=== PATIENT | male | born 1945 | race Caucasian/White ===

== ENCOUNTER 2018-01-14 10:15 | Emergency (ER) | payer MEDICARE ==
[~2018-01-14] VITALS: Ht 175.3 cm; Wt 133.4 kg
[2018-01-14 10:22] VITALS: BP 174/91
[2018-01-14] MEDS ORDERED: NEOMYCIN-BACITRACIN-POLYM UNITDOSE PKG TOP OINT TOP ONE (11:15)
== END 2018-01-14 11:24 | disposition home or self-care (01) ==
LOC: ER 10:15
DX: T23.272A Burn of second degree of left wrist, initial encounter (principal); X08.8XXA Exposure to other specified smoke, fire and flames, initial encounter; Y93.89 Activity, other specified; Y99.8 Other external cause status; Y92.89 Other specified places as the place of occurrence of the external cause

== ENCOUNTER 2024-03-29 12:07 | Inpatient (IN) | payer MEDICARE ==
[~2024-03-29] VITALS: Ht 165.1 cm; Wt 118.9 kg
[~2024-03-29 12:07] MED LIST: APIX2.5T PO; FINA5TAB4 PO
--- NOTE | 2024-03-29 12:28 | ED.PDOC ---
Musculoskeletal HPI Comments 78 year old male presents to the ED with chief complaint of blister to leg. Patient reports that he has been experiencing a large blister noted to his left leg for the past 3 days. Patient relays that he also has been experiencing bilateral leg and hand swelling for the past 2 months, but his PCP had told him it could just be due to arthritis. Patient states he is worried for fluid overload and is unsure if that could be causing the blister and swelling. Patient denies any numbness, weakness, chest pain, SOB, dizziness, fall, or injury. Time Seen by MD: 12:24 Primary Care Provider: MATY Reviewed Notes: Nurses Notes, Medications, Allergies Allergies: Coded Allergies: NO KNOWN ALLERGIES (Unverified , 01/25/19) Home Meds Reported Medications Finasteride (Finasteride) 5 Mg Tab, 5 MG PO DAILY for 30 Days, MG 01/25/19 Apixaban Base (ELIQUIS) 2.5 Mg Tab, 2.5 MG PO BID, TAB 01/25/19 Information Source: Patient, Spouse Mode of Arrival: Ambulatory Location: Left Extremity Location: Leg Timing: Days Prehospital treatment: None Severity: Moderate Able to Move Extremity: Yes Bear Weight: Limited Pain: Moderate Mechanism: Spontaneous Circumstances: Spontaneous Onset of Symptoms: Spontaneous Symptoms: Swelling DVT Risk Factors: NONE Last Tetanus: Unknown Past Medical History PAST MEDICAL HISTORY: AFIB, HTN Surgical History: Denies all surgeries Family History Family History: Unknown Social History Smoker: Non-Smoker Alcohol: Denies ETOH Use Drugs: Denies Drug Use Lives In: Home Constitutional: denies: chills, diaphoresis, fatigue, fever, malaise, sweats, weakness, others EENTM: denies: blurred vision, double vision, ear bleeding, ear discharge, ear drainage, ear pain, ear ringing, eye pain, eye redness, hearing loss, mouth pain, mouth swelling, nasal discharge, nose bleeding, nose congestion, nose pain, photophobia, tearing, throat pain, throat swelling, voice changes, others Respiratory: denies: cough, hemoptysis, orthopnea, SOB at rest, shortness of breath, SOB with excertion, stridor, wheezing, others Cardiovascular: reports: edema; denies: chest pain, dizzy spells, diaphoresis, Dyspnea on exertion, irregular heart beat, left arm pain, lightheadedness, palpitations, PND, syncope, others Gastrointestinal: denies: abdomen distended, abdominal pain, blood streaked bowels, constipated, diarrhea, dysphagia, difficulty swallowing, hematemesis, melena, nausea, poor appetite, poor fluid intake, rectal bleeding, rectal pain, vomiting, others Genitourinary: denies: burning, dysuria, flank pain, frequency, hematuria, incontinence, penile discharge, penile sore, pain, testicle pain, testicle swelling, urgency, others Neurological: denies: dizziness, fainting, headache, left sided numbness, left sided weakness, numbness, paresthesia, pre-existing deficit, right sided numbness, right sided weakness, seizure, speech problems, tingling, tremors, weakness, others Musculoskeletal: denies: back pain, gout, joint pain, joint swelling, muscle pain, muscle stiffness, neck pain, others Integumetry: reports: others (Blister noted to left leg); denies: bruises, change in color, change in hair/nails, dryness, laceration, lesions, lumps, rash, wounds Allergic/Immunocompromised: denies: Difficulty Healing, Frequent Infections, Hives, Itching, others Hematologic/Lymphatic: denies: anemia, blood clots, easy bleeding, easy bruising, swollen glands, others Endocrine: denies: excessive hunger, excessive sweating, excessive thirst, excessive urination, flushing, intolerance to cold, intolerance to heat, unexplained weight gain, unexplained weight loss, others Psychiatric: denies: anxiety, bipolar disorder, depression, hopeless, panic disorder, schizophrenia, sleepless, suicidal, others All Other Systems: Reviewed and Negative Physical Exam General Appearance: No Apparent Distress, Normal HEENT: Normal ENT Inspection, PERRL/EOMI Neck: Full Range of Motion, Non-Tender, Normal, Normal Inspection Respiratory: Chest Non-Tender, Lungs Clear, No Accessory Muscle Use, No Respiratory Distress, Normal Breath Sounds Cardiovascular: No Edema, No JVD, No Murmur, No Gallop, Normal Peripheral Pulses, Regular Rate/Rhythm Breast Exam: Deferred Gastrointestinal: No Organomegaly, Non Tender, No Pulsatile Mass, Normal Bowel Sounds, Soft Genitalia: Deferred Pelvic: Deferred Rectal: Deferred Extremities: Leg edema (2+ pitting edema to bilateral lower extremities up to the knees), No calf tenderness, Normal capillary refill, Normal range of motion, Other (2x2cm Bulla noted to the left anterior leg) Musculoskeletal : Apperance: Normal Neurologic: Alert, oil inspector II-XII nml as Tested, No Motor Deficits, Normal Affect, Normal Mood, No Sensory Deficits Cerebellar Function: Normal Reflexes: Normal Skin: Dry, Normal Color, Warm Lymphatic: No Adenopathy Was a procedure done? Was a procedure done?: No Differential Diagnosis EXT Differential Diagnosis: Cellulitis, CHF, Deep Vein Thrombosis, Compartment Syndrome, Fracture, Sprain, Dislocation, Gout, DJD, Contusion, Strain, Septic, Neurovascular injury, Arthritis, Bursitis X-Ray, Labs, Meds, VS Vital Signs Date Time Temp Pulse Resp B/P (MAP) Pulse Ox O2 Delivery O2 Flow Rate FiO2 03/29/24 15:02 97.3 67 18 142/84 (103) 100 97.3 03/29/24 15:02 Room Air* 0 21 03/29/24 12:31 84 03/29/24 12:20 97.8 87 20 115/49 (71) 97 Lab Test 03/29/24 14:28 03/29/24 12:59 Range/Units Troponin I High Sensitivity 9 9 </=54 ng/L White Blood Count 8.6 4.4-10.8 10^3/uL Red Blood Count 4.87 4.5-5.90 10^6/uL Hemoglobin 16.2 13.5-17.5 g/dL Hematocrit 48.0 41.0-53.0 % Mean Corpuscular Volume 98.7 80.0-100.0 fL Mean Corpuscular Hemoglobin 33.2 H 28.0-32.0 pg Mean Corpuscular Hemoglobin Concent 33.7 32.0-36.0 g/dL Red Cell Distribution Width 13.7 11.8-14.3 % Platelet Count 157 140-450 10^3/uL Mean Platelet Volume 9.0 6.9-10.8 fL Neutrophils (%) (Auto) 80.2 H 37.0-80.0 % Lymphocytes (%) (Auto) 9.2 L 10.0-50.0 % Monocytes (%) (Auto) 8.8 0.0-12.0 % Eosinophils (%) (Auto) 0.9 0.0-7.0 % Basophils (%) (Auto) 0.9 0.0-2.0 % Neutrophils # (Auto) 6.9 1.6-8.6 10 ^3/uL Lymphocytes # (Auto) 0.8 0.4-5.4 10 ^3/uL Monocytes # (Auto) 0.8 0-1.3 10 ^3/uL Eosinophils # (Auto) 0.1 0-0.8 10 ^3/uL Basophils # (Auto) 0.1 0-0.2 10 ^3/uL Nucleated Red Blood Cells 0.0 % Prothrombin Time 11.9 H 9.3-11.8 sec Prothrombin Time INR 1.14 0.9-1.15 Activated Partial Thromboplast Time 26.2 24.5-34.5 SEC D-Dimer, Quantitative 0.79 H 0.0-0.49 mg/L FEU Sodium Level 139 136-145 mmol/L Potassium Level 4.6 3.5-5.1 mmol/L Chloride Level 104 98-107 mmol/L Carbon Dioxide Level 30 20-31 mmol/L Anion Gap 5 5-15 Blood Urea Nitrogen 15 9-23 mg/dL Creatinine 0.88 0.700-1.30 mg/dL Glomerular Filtration Rate Calc 89 >90 mL/min BUN/Creatinine Ratio 17.0 10.0-20.0 Serum Glucose 129 H 74-106 mg/dL Calcium Level 9.7 8.7-10.4 mg/dL Magnesium Level 2.0 1.6-2.6 mg/dL Total Bilirubin 0.8 0.2-1.0 mg/dL Aspartate Amino Transferase (AST) 23 13-40 U/L Alanine Aminotransferase (ALT) 20 7-40 U/L Alkaline Phosphatase 91 46-116 U/L B-Type Natriuretic Peptide 129.30 0-100 pg/mL Total Protein 6.1 5.7-8.2 g/dL Albumin 4.1 3.2-4.8 g/dL Bilat DVT US: FINDINGS: The right and left common femoral, superficial femoral, popliteal, posterior tibial veins appear patent with normal augmentation, phasicity, compressibility and color-flow. IMPRESSION: 1. There is no sonographic evidence for DVT in the lower extremities. Rt Upper DVT US: FINDINGS: Right internal jugular, subclavian, axillary, brachial, basilic, cephalic, radial and ulnar veins appear patent with normal augmentation, phasicity, compressibility and color-flow. IMPRESSION: 1. No sonographic evidence of DVT in the right upper extremity. Chest XR: FINDINGS: No pneumothorax, pulmonary edema, or consolidative infiltrates. The heart is enlarged. There is marked midthoracic dextroscoliosis. IMPRESSION: 1. Cardiomegaly without evidence of acute intrathoracic process. 2. Marked midthoracic dextroscoliosis. X-Ray, Labs, Meds, VS Comment This 78 year old male presents secondary to increasing BLLE edema, SOB and now has a bullae to [facility]. He is having difficulty ambulating secondary to the edema. I will admit for acute CHF exacerbation Time of 1ST Reevaluation: 13:24 Reevaluation 1ST: Unchanged Patient Education/Counseling: Diagnosis, Treatment Family Education/Counseling: Diagnosis, Treatment Departure 1 Departure Time of Disposition: 15:33 Impression: Primary Impression: CHF (congestive heart failure) Additional Impressions: Lower extremity edema Difficulty in walking Bullae Disposition: 09 ADMITTED INPATIENT Condition: Fair Critical Care Note Critical Care Time?: No Stability Stability form required: No Heart Score Heart Score: Heart Score Response (Comments) Value History N/A 0 EKG N/A 0 Age N/A 0 Risk Factors N/A 0 Troponin N/A 0 Total 0 I personally scribed for ANNE FREEMAN MD ([email or web address]) on 03/29/24 at 12:27. Electronically submitted by Jamal Valenzuela ([email or web address]). I personally scribed for ANNE FREEMAN MD ([email or web address]) on 03/29/24 at 14:47. Electronically submitted by Jamal Valenzuela ([email or web address]). ANNE FREEMAN MD Mar 29, 2024 12:27
--- NOTE | 2024-03-29 12:33 | ECG ---
[facility] Test Date: 2024-03-29 Test Time: 12:31:50 Pat Name: JARAD BUSCH Department: ER Room: 0294T Gender: M Hydrotherapist: SNOW : 1945 Requested By: ANNE FREEMAN Order Number: [id number] Reading MD: Andrew Armendariz Measurements Intervals Telferner Rate: 84 P: 0 DE: 0 QRS: -9 QRSD: 84 T: 93 QT: 377 QTc: 446 Interpretive Statements Atrial fibrillation Low voltage, precordial leads Nonspecific T abnormalities, lateral leads Electronically Signed On 03-30-2024 13:16:47 PST by Andrew Armendariz Please click the below link to view image of tracing.
--- NOTE | 2024-03-29 13:02 | DVH ---
CHEST RADIOGRAPH Indication: cough Technique: Portable upright AP view of the chest was performed. COMPARISON: None FINDINGS: No pneumothorax, pulmonary edema, or consolidative infiltrates. The heart is enlarged. There is mar ked midthoracic dextroscoliosis. IMPRESSION: 1. Cardiomegaly without evidence of acute intrathoracic process. 2. Marked midthoracic dextroscoliosis.
[2024-03-29 13:30] LABS: Basophils # (auto) 0.1 10 ^3/uL (0-0.2); Basophils % (auto) 0.9 % (0.0-2.0); Eosinophils # (auto) 0.1 10 ^3/uL (0-0.8); Eosinophils % (auto) 0.9 % (0.0-7.0); Hemoglobin 16.2 g/dL (13.5-17.5); Lymphocytes # (auto) 0.8 10 ^3/uL (0.4-5.4); Lymphocytes % (auto) 9.2 % (10.0-50.0); Mean Corpuscular Hemoglobin 33.2 pg (28.0-32.0); Mean Corpuscular Hgb Conc. 33.7 g/dL (32.0-36.0); Mean Corpuscular Volume 98.7 fL (80.0-100.0); Monocytes # (auto) 0.8 10 ^3/uL (0-1.3); Monocytes % (auto) 8.8 % (0.0-12.0); Neutrophils # (auto) 6.9 10 ^3/uL (1.6-8.6); Neutrophils % (auto) 80.2 % (37.0-80.0); Platelet Count (auto) 157 10^3/uL (140-450); Red Blood Cells 4.87 10^6/uL (4.5-5.90); Red Cell Distribution Width 13.7 % (11.8-14.3); White Blood Cell 8.6 10^3/uL (4.4-10.8)
[2024-03-29 13:38] LABS: INR 1.14 (0.9-1.15); Partial Thromboplastin Time 26.2 SEC (24.5-34.5); Prothrombin Time 11.9 sec (9.3-11.8)
[2024-03-29 13:41] LABS: Alanine Aminotransferase 20 U/L (7-40); Alkaline Phosphatase 91 U/L (46-116); Anion Gap 5 (5-15); Aspartate Aminotransferase 23 U/L (13-40); Blood Urea Nitrogen 15 mg/dL (9-23); Calcium 9.7 mg/dL (8.7-10.4); Carbon Dioxide 30 mmol/L (20-31); Chloride 104 mmol/L (98-107); Potassium 4.6 mmol/L (3.5-5.1); Sodium 139 mmol/L (136-145)
[2024-03-29 13:42] LABS: Albumin 4.1 g/dL (3.2-4.8); Bilirubin, Total 0.8 mg/dL (0.2-1.0); Total Protein 6.1 g/dL (5.7-8.2)
[2024-03-29 13:45] LABS: Glucose 129 mg/dL (74-106)
--- NOTE | 2024-03-29 14:23 | DVH ---
Right UPPER EXTREMITY VENOUS DOPPLER CLINICAL HISTORY: right upper extremity edema TECHNIQUE: Right upper extremity venous Doppler study was performed. Comparison: None FINDINGS: Right internal jugular, subclavian, axillary, brachial, basilic, cephalic, radial and ulnar veins juancho ear patent with normal augmentation, phasicity, compressibility and color-flow. IMPRESSION: 1. No sonographic evidence of DVT in the right upper extremity. HS:Y
--- NOTE | 2024-03-29 14:29 | DVH ---
BILATERAL LOWER EXTREMITY VENOUS DOPPLER CLINICAL HISTORY: blle edema Technique: Duplex Doppler evaluation of the deep venous systems of both lower extremities from the co mmon femoral veins to the popliteal veins including color Doppler and spectral/pulsed waveform analys is was performed. COMPARISON: None FINDINGS: The right and left common femoral, superficial femoral, popliteal, posterior tibial veins appear pa tent with normal augmentation, phasicity, compressibility and color-flow. IMPRESSION: 1. There is no sonographic evidence for DVT in the lower extremities. HS:Y
[2024-03-29 15:46] LABS: Urine Bacteria None Seen /hpf (None Seen)
[2024-03-29 15:56] LABS: Urine Blood Negative /uL (Negative); Urine Clarity Clear (Clear); Urine Color Yellow (Yellow); Urine Mucus FEW (None Seen); Urine Protein, UAD TRACE (Negative); Urine Specific Gravity 1.025 (1.001-1.035); Urine Squamous Epithelial Cell FEW /hpf (<5); Urine Urobilinogen 2 mg/dL (Negative); Urine WBC 6 /HPF (0-3); Urine pH 5.5 (5.0-9.0)
[2024-03-29] MEDS ORDERED: ACETAMINOPHEN 325 MG TAB PO PRN (22:30)
[2024-03-30] VITALS (8 sets, daily range): BP systolic 105–128; BP diastolic 52–59; PULSE 69–91; RESP 14–20; TEMP 97.6–98.5; O2SAT 95–98
[2024-03-30] MEDS ORDERED: FUROSEMIDE 40 MG/4 ML VIAL IV ONE (00:15)
[2024-03-30] MEDS ORDERED: FINASTERIDE 5 MG TAB PO ONE (00:15)
[2024-03-30 00:31] LABS: CRP High Sensitivity 0.04 mg/dL (<1.0)
--- NOTE | 2024-03-30 01:50 | DVHHPRES ---
History of Present Illness Resident Creating Document: YAO DSOUZA RESIDENT History of Present Illness Patient is a 78-year-old male with past medical history of dementia, hypertension, AFib, obstructive uropathy, who was brought in by due to a left lower extremity ulcer. According to patient's at bedside, she noticed the ulcer yesterday for the 1st time. At the time of my assessment patient is AO x2 and reports he has had the ulcer for a couple of days. Denies any pain or any similar symptoms in the past. Review of systems is negative, however, patient might be a poor historian. On physical examination patient is noted to have a left anterior edwards ulcer stage II? 2 x 2 cm with a clean base along with 2+ lower extremity edema bilaterally. Past Medical History dementia, hypertension, AFib, obstructive uropathy Past Surgical History Denies Smoke: No ALCOHOL: none Drugs: None Lives: with Family Review of Systems Constitutional: No: Fever, Chills, Sweats, Weakness, Malaise, Other Eyes: No: Pain, Vision change, Conjunctivae inflammation, Eyelid inflammation, Other, Redness ENT: No: Ear pain, Ear discharge, Nose pain, Nose discharge, Nose congestion, Mouth pain, Mouth swelling, Throat pain, Throat swelling, Other Respiratory: No: Cough, Dry, Shortness of breath, SOB with excertion, Wheezing, Hemoptysis, Pleuritic Pain, Sputum, Wheezing, Other Cardiovascular: No: Chest Pain, Palpitations, Orthopnea, Paroxysmal Noc. Dyspnea, Edema, Lt Headedness, Other Gastrointestinal: No: Nausea, Vomiting, Abdominal Pain, Diarrhea, Constipation, Melena, Hematochezia, Other Genitourinary: No Dysuria, No Frequency, No Incontinence, No Hematuria, No Retention, No Other Musculoskeletal: No: other, neck pain, shoulder pain, arm pain, back pain, hand pain, leg pain, foot pain Skin: No: Rash, Lesions, Jaundice, Bruising, Other Neurological: No: Weakness, Numbness, Incoordination, Change in speech, Confusion, Seizures, Other Allergies: Coded Allergies: NO KNOWN ALLERGIES (Unverified , 01/25/19) Medications Current Medications Medications Dose Ordered Sig/Siri Route Start Time Stop Time Status Last Admin Dose Admin Acetaminophen 650 mg Q6HP PRN PO 03/29/24 22:30 Furosemide 40 mg DAILY IV 03/30/24 10:00 Enoxaparin Sodium 120 mg Q12H SC 03/30/24 01:00 Finasteride 5 mg DAILY PO 03/30/24 10:00 Memantine 5 mg DAILY PO 03/30/24 10:00 Lisinopril 20 mg DAILY PO 03/30/24 10:00 Exam Vital Signs Vital Signs Date Time Temp Pulse Resp B/P (MAP) Pulse Ox O2 Delivery O2 Flow Rate FiO2 03/29/24 23:35 97.5 74 16 150/76 (100) 98 97.5 03/29/24 15:02 Room Air* 0 21 General Appearance: Alert (AOX2), Cooperative, No acute distress HEENT: Atraumatic, PERRLA, EOMI Respiratory: Clear to auscultation, Normal air movement Cardiovascular: Regular rate, Normal S1, Normal S2 Abdominal: Normal bowel sounds, Soft, No tenderness Extremities: Other (Left anterior edwards ulcer with a clean base, 2+ lower ex tremity edema) Neuro: Normal speech, Sensation intact Psych/Mental Status: Mental status NL, Mood NL Labs/Xrays Labs Test 03/29/24 17:08 03/29/24 15:21 03/29/24 12:59 Range/Units Troponin I High Sensitivity 9 </=54 ng/L C-Reactive Protein High Sensitivity 0.04 <1.0 mg/dL Triglycerides Level 70 < 150 mg/dL Cholesterol Level 171 < 200 mg/dL LDL Cholesterol 118 H < 100 mg/dL HDL Cholesterol 58 40-59 mg/dL Urine Color Yellow Yellow Urine Clarity Clear Clear Urine pH 5.5 5.0-9.0 Urine Specific [place] 1.025 1.001-1.035 Urine Protein Trace H Negative Urine Ketones 1+ H Negative Urine Blood Negative Negative /uL Urine Nitrite Negative Negative Urine Bilirubin Negative Negative Urine Urobilinogen 2 H Negative mg/dL Urine Leukocyte Esterase Trace Negative /uL Urine RBC 7 0 - 3 /hpf Urine Microscopic WBC 6 H 0-3 /HPF Urine Squamous Epithelial Cells Few <5 /hpf Urine Calcium Oxalate Crystals Mod None Seen Urine Bacteria None seen None Seen /hpf Urine Mucus Few None Seen Urine Glucose Normal Normal mg/dL White Blood Count 8.6 4.4-10.8 10^3/uL Red Blood Count 4.87 4.5-5.90 10^6/uL Hemoglobin 16.2 13.5-17.5 g/dL Hematocrit 48.0 41.0-53.0 % Mean Corpuscular Volume 98.7 80.0-100.0 fL Mean Corpuscular Hemoglobin 33.2 H 28.0-32.0 pg Mean Corpuscular Hemoglobin Concent 33.7 32.0-36.0 g/dL Red Cell Distribution Width 13.7 11.8-14.3 % Platelet Count 157 140-450 10^3/uL Mean Platelet Volume 9.0 6.9-10.8 fL Neutrophils (%) (Auto) 80.2 H 37.0-80.0 % Lymphocytes (%) (Auto) 9.2 L 10.0-50.0 % Monocytes (%) (Auto) 8.8 0.0-12.0 % Eosinophils (%) (Auto) 0.9 0.0-7.0 % Basophils (%) (Auto) 0.9 0.0-2.0 % Neutrophils # (Auto) 6.9 1.6-8.6 10 ^3/uL Lymphocytes # (Auto) 0.8 0.4-5.4 10 ^3/uL Monocytes # (Auto) 0.8 0-1.3 10 ^3/uL Eosinophils # (Auto) 0.1 0-0.8 10 ^3/uL Basophils # (Auto) 0.1 0-0.2 10 ^3/uL Nucleated Red Blood Cells 0.0 % Prothrombin Time 11.9 H 9.3-11.8 sec Prothrombin Time INR 1.14 0.9-1.15 Activated Partial Thromboplast Time 26.2 24.5-34.5 SEC D-Dimer, Quantitative 0.79 H 0.0-0.49 mg/L FEU Sodium Level 139 136-145 mmol/L Potassium Level 4.6 3.5-5.1 mmol/L Chloride Level 104 98-107 mmol/L Carbon Dioxide Level 30 20-31 mmol/L Anion Gap 5 5-15 Blood Urea Nitrogen 15 9-23 mg/dL Creatinine 0.88 0.700-1.30 mg/dL Glomerular Filtration Rate Calc 89 >90 mL/min BUN/Creatinine Ratio 17.0 10.0-20.0 Serum Glucose 129 H 74-106 mg/dL Hemoglobin A1c 5.1 <5.7 % A1C Calcium Level 9.7 8.7-10.4 mg/dL Magnesium Level 2.0 1.6-2.6 mg/dL Total Bilirubin 0.8 0.2-1.0 mg/dL Aspartate Amino Transferase (AST) 23 13-40 U/L Alanine Aminotransferase (ALT) 20 7-40 U/L Alkaline Phosphatase 91 46-116 U/L B-Type Natriuretic Peptide 129.30 0-100 pg/mL Total Protein 6.1 5.7-8.2 g/dL Albumin 4.1 3.2-4.8 g/dL Assessment/Plan Assessment/Plan Possible CHF exacerbation History of atrial fibrillation with RVR, currently rate controlled Hypertension - CXR: Cardiomegaly without evidence of acute intrathoracic process. Marked midthoracic dextroscoliosis. - IV Lasix 40 mg once - IV Lasix 40 mg daily - therapeutic Lovenox b.i.d. - ordered echocardiogram Left anterior leg ulcer with a clean base Questionable cellulitis? - lower extremity venous Doppler: No sonographic evidence of DVT in bilateral lower extremities, no sonographic evidence of DVT in the right upper extremity - arterial duplex lower extremity: No evidence of arterial insufficiency, vascular occlusion or significant stenosis in the bilateral lower extremity arteries. Subcutaneous edema in the bilateral extremities, greater on the left. - wound culture -wound consult Obstructive uropathy Dementia - resumed home medication finasteride 5 mg - resumed home medication memantine 5 mg - resumed home medication lisinopril 20 mg Goals of care: Full code, discussed for >16 minutes on 03/29/2024 Plan discussed with patient Plan discussed with Dr. Carrillo Plan discussed with: Patient, Spouse, Other (RN) My Orders Orders - YAO DSOUZA RESIDENT Procedure Category Date Status Time Admit ADMIT 03/29/24 Transmitted 22:21 Code Status CODE 03/29/24 Transmitted 22:21 Vital Signs EDNA 03/29/24 In Process 22:21 Review Orders With EDNA 03/29/24 In Process Adm. 22:21 Acetaminophen Tablet PHA 03/29/24 In Process (Tylenol Tablet) 22:30 Notify Of Changes EDNA 03/29/24 In Process From Base 22:21 Advance Directive EDNA 03/29/24 In Process 22:21 Patient Condition ORDERS 03/29/24 Transmitted 22:21 Allergies EDNA 03/29/24 In Process 22:21 Notify Md Of Changes EDNA 03/29/24 In Process From Base 22:21 Echo 2d Mode Cardiac US 03/30/24 Logged DOP 00:12 Bilat Low Ext Art US 03/30/24 Taken Duplex 00:12 * Wound Consult CONS 03/30/24 Transmitted Wound Culture W/ Gs JOAO 03/30/24 Logged 00:12 Cardiac DIET 03/30/24 Transmitted Diet-2gna,Lofat,Lochol Breakfast Furosemide Injection PHA 03/30/24 In Process (Lasix Injection) 10:00 Enoxaparin Sodium PHA 03/30/24 In Process (Lovenox) 01:00 Finasteride Tablet PHA 03/30/24 In Process (Proscar Tablet) 10:00 Memantine Tablet PHA 03/30/24 In Process (Namenda Tablet) 10:00 Lisinopril Tablet PHA 03/30/24 In Process (Zestril Tablet) 10:00 Date of Service: Mar 29, 2024 Billing Provider: NAYELI ALATORRE MD Common Visit Codes: [id number]-[id number] INP/OBS CARE (HIGH) YAO DSOUZA RESIDENT Mar 30, 2024 01:50 NAYELI ALATORRE MD Apr 04, 2024 16:03
--- NOTE | 2024-03-30 01:56 | DVH ---
BILATERAL LOWER EXTREMITY ARTERIAL DOPPLER ULTRASOUND CLINICAL HISTORY: ulcer left anterior edwards TECHNIQUE: Multiple grayscale, color Doppler and spectral Doppler ultrasound images were obtained of bilateral legs for evaluation of the peripheral arteries. COMPARISON: None FINDINGS: The common femoral (DIRECTOR OPERATIONS), upper deep femoral, superficial femoral (SFA), popliteal, posterior tibial (TANKER DRIVER) arteries were evaluated on this exam. The dorsalis pedis arteries were not visualized in the l eft popliteal artery was not well-visualized. Grayscale images demonstrate no significant atherosclerotic plaque. There is subcutaneous edema in th e bilateral lower extremities greater on the left. Right: Color doppler images demonstrate no visible stenosis or occlusion. Spectral analysis demonstrates no rmal, high-resistive blood flow. Systolic acceleration is normal. No significant change in velocity to suggest high-grade stenosis. Velocities (in cm/s) Common femoral artery: 135; deep femoral artery proximally: 100; superficial femoral artery proximal 116, mid 86, distal 114; popliteal: 72 ; posterior tibial 79 Left: Color doppler images demonstrate no visible stenosis or occlusion. Spectral analysis demonstrates no rmal, high-resistive blood flow. Systolic acceleration is normal. No significant change in velocity to suggest high-grade stenosis. Velocities (in cm/s) Common femoral artery: 102; deep femoral artery proximal: 116; SFA proximal 116, mid 94, distal 55 ; posterior tibial: 62 IMPRESSION: 1. No evidence of arterial insufficiency, vascular occlusion or significant stenosis in the bilateral lower extremity arteries. 2. Subcutaneous edema in the bilateral extremities, greater on the left
[2024-03-30] MEDS ORDERED: FIN5T PO (05:27)
[2024-03-30] MEDS ORDERED: DONE1TAB88 PO (05:27)
[2024-03-30] MEDS ORDERED: MEMA1TAB3 PO (05:27)
[2024-03-30] MEDS ORDERED: LISI20TA56 (05:27)
[2024-03-30] MEDS ORDERED: APIX5TAB PO (05:28)
[2024-03-30 09:29] LABS: Basophils # (auto) 0.1 10 ^3/uL (0-0.2); Basophils % (auto) 0.7 % (0.0-2.0); Eosinophils # (auto) 0.1 10 ^3/uL (0-0.8); Eosinophils % (auto) 0.7 % (0.0-7.0); Hematocrit 43.9 % (41.0-53.0); Lymphocytes # (auto) 0.7 10 ^3/uL (0.4-5.4); Mean Corpuscular Hemoglobin 33.3 pg (28.0-32.0); Mean Corpuscular Hgb Conc. 34.2 g/dL (32.0-36.0); Mean Corpuscular Volume 97.2 fL (80.0-100.0); Monocytes # (auto) 0.7 10 ^3/uL (0-1.3); Monocytes % (auto) 9.3 % (0.0-12.0); Neutrophils # (auto) 6.2 10 ^3/uL (1.6-8.6); Neutrophils % (auto) 80.3 % (37.0-80.0); Platelet Count (auto) 139 10^3/uL (140-450); Red Blood Cells 4.52 10^6/uL (4.5-5.90); Red Cell Distribution Width 13.5 % (11.8-14.3); White Blood Cell 7.7 10^3/uL (4.4-10.8)
[2024-03-30 09:34] LABS: Chloride 105 mmol/L (98-107); Potassium 4.2 mmol/L (3.5-5.1); Sodium 139 mmol/L (136-145)
[2024-03-30 09:35] LABS: Anion Gap 5 (5-15); Calcium 9.6 mg/dL (8.7-10.4); Carbon Dioxide 29 mmol/L (20-31)
[2024-03-30 09:40] LABS: BUN/Creatinine Ratio 17.8 (10.0-20.0); Blood Urea Nitrogen 13 mg/dL (9-23); Glucose 104 mg/dL (74-106)
[2024-03-30] MEDS: LISINOPRIL 20 MG TAB PO SCH (10:23)
[2024-03-30] MEDS: FINASTERIDE 5 MG TAB PO SCH (10:23)
[2024-03-30] MEDS: MEMANTINE HCL 5 MG TAB PO SCH (10:23)
[2024-03-30] MEDS: FUROSEMIDE 40 MG/4 ML VIAL IV SCH (10:24)
--- NOTE | 2024-03-30 13:17 | DVHPNRES ---
Progress Note Date Seen: Mar 30, 2024 Resident Creating Document: KATHIE ALTAMIRANOYVONNE RESIDENT Medical Necessity Reason Pt with a Central, PICC or Fol: No Subjective Review of Systems Patient is a 78-year-old male with a past medical history of atrial fibrillation, hypertension, dementia, obstructive uropathy was brought in by due to left lower extremity ulcer. Patient's reported that she noticed ulcer on the left lower extremity on the anterior surface of the lower leg above ankle about 2 days ago. She also reports that patient was had bilateral lower extremity swelling which has been increasing. Patient himself is a poor historian and does not report of any acute complaints. Past medical history: Dementia, atrial fibrillation, hypotension, obstructive uropathy Past surgical history: None Social history: Patient lives with his who is his wireless sales associate, uses walker to walk around. Denies smoking, alcohol, drug use Home medications: Lisinopril 20 mg, finasteride 5 mg, memantine 5 mg, donepezil 10 mg, Eliquis 5 mg b.i.d. Review of systems Patient does not complain of any acute complaints and reports feeling fine but patient has dementia. does not appear to be in acute distress Objective vital signs Vital Sign Date Time Temp Pulse Resp B/P (MAP) Pulse Ox O2 Delivery O2 Flow Rate FiO2 03/30/24 10:24 119/53 03/30/24 09:00 98.1 79 16 96 98.1 03/30/24 08:00 Room Air* 0 21 medications Current Medications Medications Dose Ordered Sig/Siri Route Start Time Stop Time Status Last Admin Dose Admin Acetaminophen 650 mg Q6HP PRN PO 03/29/24 22:30 Furosemide 40 mg DAILY IV 03/30/24 10:00 03/30/24 10:24 40 MG Enoxaparin Sodium 120 mg Q12H SC 03/30/24 01:00 Finasteride 5 mg DAILY PO 03/30/24 10:00 03/30/24 10:23 5 MG Memantine 5 mg DAILY PO 03/30/24 10:00 03/30/24 10:23 5 MG Lisinopril 20 mg DAILY PO 03/30/24 10:00 03/30/24 10:23 20 MG Examination Physical Examination Constitutional: Patient was alert and oriented X 1 and does not appear to be in acute respiratory distress. Gen - no pallor, no icterus, no cyanosis, no clubbing, no LAD, bilateral 3+ pitting edema Skin - Patients skin is warm and dry. HEENT - normocephalic, atraumatic, moist mucous membranes. Neck - full ROM, no LAD, no JVD Pulmonary - B/L vesicular breath sounds. no crackles , no wheezing cardiovascular - irregular rhythm, S1,S2 heard. no murmurs heard. GI - soft abdomen without tenderness to palpation . no hepatospleenomegaly. Bowel Sounds normoactive Neurological - Bilateral upper extremity strength 4/5, bilateral lower extremity strength 4/5, no facial droop, normal speech, no tremor, no sensory deficiets. 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 There is global hypokinesis of the left ventricle. The left atrium is moderately dilated. The right atrium is moderately dilated. - on furosemide 40mg IV qd - on lisinopril 20mg qd History of obstructive uropathy ?BPH - monitor I/O - on finasteride Dementia - continued on memantine Goals of care discussed with the patient's for over 20 mins. Full code Plan discussed with Plan discussed with: Spouse CURTIS ALTAMIRANO RESIDENT Mar 30, 2024 13:17
[2024-03-30] MEDS: ceFAZolin 1GM/50ML 50 ML IV SCH (14:00)
--- NOTE | 2024-03-30 15:16 | DVHSR ---
APPROVED REPORT EXAM: Two-dimensional and M-mode echocardiogram with Doppler and color Doppler. Blood Pressure: 127/59 mmHg INDICATION 2+ lower extremity edema RISK FACTORS Height: 65, Weight: 257 DIMENSIONS LVDd4.4 (3.8-5.7cm)LA (2D)5.1 (1.9-4.0cm)Aortic Root3.5 (2.0-3.7cm) LVDs3.3 (2.5-4.0cm)LA (MM) (1.9-4.0cm)Aortic Cusp Exc1.0 (1.5-2.0cm) EF (%) 50.0 (55-70%)Rt. Atrium4.9 (1.9-4.0cm)Asc. Aorta cm Mitral Valve MitralMitral Stenosis E/A ratio0.02D MVAcm2 Aortic Valve Aortic ValveAortic Stenosis LVOT Diameter2.4 (1.8-2.4cm)Doppler AVAcm2 Pulmonic Valve V21.17m/s Tricuspid Valve TR Velocity2.48m/s [id number] LEFT VENTRICLE The left ventricle is normal size. There is normal left ventricular wall thickness. Left ventricle systolic function is mildly decreased, The Ejection Fraction is 40-45%. There is global hypokinesis of the left ventricle. RIGHT VENTRICLE Right ventricular function cannot be assessed due to poor image quality. ATRIA The left atrium is moderately dilated. The right atrium is moderately dilated. MITRAL VALVE The mitral valve is grossly normal. Mitral regurgitation is trace. PULMONIC VALVE The pulmonic valve is grossly normal in structure and function. There is no pulmonic valvular regurgitation. TRICUSPID VALVE The tricuspid valve is grossly normal. There is trace tricuspid regurgitation. AORTIC VALVE The aortic valve is trileaflet. The aortic valve is mildly sclerotic. There is trace aortic regurgitation. GREAT VESSELS The aortic root is normal size. PERICARDIAL EFFUSION No evidence of pericardial effusion. Other Information Technically limited study due to body habitus and patient position. Patient refused to let me comple te the study in full. Conclusion The left ventricle is normal size. There is normal left ventricular wall thickness. Left ventricle sy stolic function is mildly decreased, The Ejection Fraction is 40-45%. There is global hypokinesis of the left ventricle. The left atrium is moderately dilated. The right atrium is moderately dilated. No significant valvular abnormalities. No evidence of pericardial effusion.
[2024-03-31] VITALS (7 sets, daily range): BP systolic 110–133; BP diastolic 55–71; PULSE 68–96; RESP 17–20; TEMP 97.7–98; O2SAT 96–97
[2024-03-31 07:43] LABS: Basophils # (auto) 0 10 ^3/uL (0-0.2); Basophils % (auto) 0.5 % (0.0-2.0); Eosinophils # (auto) 0.1 10 ^3/uL (0-0.8); Eosinophils % (auto) 1.8 % (0.0-7.0); Hematocrit 45.7 % (41.0-53.0); Hemoglobin 15.8 g/dL (13.5-17.5); Lymphocytes # (auto) 0.9 10 ^3/uL (0.4-5.4); Lymphocytes % (auto) 11.6 % (10.0-50.0); Mean Corpuscular Hemoglobin 33.6 pg (28.0-32.0); Mean Corpuscular Hgb Conc. 34.5 g/dL (32.0-36.0); Mean Corpuscular Volume 97.4 fL (80.0-100.0); Monocytes # (auto) 0.7 10 ^3/uL (0-1.3); Neutrophils # (auto) 5.9 10 ^3/uL (1.6-8.6); Neutrophils % (auto) 77.1 % (37.0-80.0); Nucleated Red Blood Cells % 0.2 %; Platelet Count (auto) 131 10^3/uL (140-450); Red Blood Cells 4.69 10^6/uL (4.5-5.90); Red Cell Distribution Width 13.4 % (11.8-14.3); White Blood Cell 7.7 10^3/uL (4.4-10.8)
[2024-03-31 08:00] LABS: Anion Gap 5 (5-15); Chloride 102 mmol/L (98-107); Sodium 139 mmol/L (136-145)
[2024-03-31 08:01] LABS: Calcium 9.5 mg/dL (8.7-10.4)
[2024-03-31 08:06] LABS: BUN/Creatinine Ratio 14.1 (10.0-20.0); Blood Urea Nitrogen 13 mg/dL (9-23); Glucose 105 mg/dL (74-106)
[2024-03-31 08:18] LABS: Carbon Dioxide 32 mmol/L (20-31)
[2024-03-31] MEDS: ENOXAPARIN SOD 100 MG/1 ML SYRINGE SC SCH (12:49)
[2024-03-31] MEDS: EMPAGLIFLOZIN 10 MG TAB PO SCH (12:50)
[2024-03-31] MEDS ORDERED: ENOXAPARIN SOD 120 MG/0.8 ML SYRINGE SC SCH (16:45)
--- NOTE | 2024-03-31 17:12 | DVHPNRES ---
Progress Note Date Seen: Mar 31, 2024 Resident Creating Document: TIEN ALTAMIRANONUZHATREG RESIDENT Medical Necessity Reason Pt with a Central, PICC or Fol: No Subjective Review of Systems Patient does not complain of any acute complaints and reports feeling fine but patient has dementia. does not appear to be in acute respiratory distress Objective vital signs Vital Sign Date Time Temp Pulse Resp B/P (MAP) Pulse Ox O2 Delivery O2 Flow Rate FiO2 03/31/24 10:44 98.0 68 18 120/59 (79) 96 98.0 03/31/24 08:00 Room Air* 0 21 Total Intake and Output 03/30/24 03/30/24 03/31/24 15:00 23:00 07:00 Intake Total 50 ml 175 ml 345 ml Output Total 2530 ml 450 ml Balance 50 ml -2355 ml -105 ml medications Current Medications Medications Dose Ordered Sig/Siri Route Start Time Stop Time Status Last Admin Dose Admin Acetaminophen 650 mg Q6HP PRN PO 03/29/24 22:30 Furosemide 40 mg DAILY IV 03/30/24 10:00 03/31/24 10:05 40 MG Finasteride 5 mg DAILY PO 03/30/24 10:00 03/31/24 10:04 5 MG Memantine 5 mg DAILY PO 03/30/24 10:00 03/31/24 10:04 5 MG Empaglifozin 10 mg DAILY PO 03/31/24 10:45 03/31/24 12:50 10 MG Ceftriaxone Sodium 50 ml @ 100 mls/hr DAILY@09 IV 04/01/24 09:00 Losartan Potassium 50 mg DAILY PO 04/01/24 10:00 Enoxaparin Sodium 120 mg Q12H SC 03/31/24 20:00 Examination Constitutional: Patient was alert and oriented X 1 and does not appear to be in acute respiratory distress. Gen - no pallor, no icterus, no cyanosis, no clubbing, no LAD, bilateral 2+ pitting edema Skin - Patients skin is warm and dry. HEENT - normocephalic, atraumatic, moist mucous membranes. Neck - full ROM, no LAD, no JVD Pulmonary - B/L vesicular breath sounds. no crackles , no wheezing cardiovascular - irregular rhythm, S1,S2 heard. no murmurs heard. GI - soft abdomen without tenderness to palpation . no hepatospleenomegaly. Bowel Sounds normoactive Neurological - Bilateral upper extremity strength 4/5, bilateral lower extremity strength 4/5, no facial droop, normal speech, no tremor, no sensory deficiets. 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 There is global hypokinesis of the left ventricle. The left atrium is moderately dilated. The right atrium is moderately dilated. - on furosemide 40mg IV qd - stopped lisinopril and started losartan 50 mg qd - added jardiance - cardiology consult for possible ischemic workup d/t new onset heart failure History of obstructive uropathy ?BPH - monitor I/O - on finasteride Dementia - continued on memantine Goals of care discussed with the patient's for over 21 mins. Full code Plan discussed with Plan discussed with: Spouse (anel) My Orders My Orders Orders - CURTIS ALTAMIRANO Procedure Category Date Status Time Empagliflozin PHA 03/31/24 In Process (Jardiance) 10:45 Pt Request For Service PT 03/31/24 Logged 10:53 * Cardiology Consult CONS 03/31/24 Transmitted 15:31 Ceftriaxone 1gm/50ml PHA 04/01/24 In Process D5w (Rocephin) 09:00 Losartan Tablet PHA 04/01/24 In Process (Cozaar Tablet) 10:00 Date of Service: Mar 31, 2024 Billing Provider: JOVITA FISH MD Common Visit Codes: [id number] INP/OBS CARE(HIGH) CURTIS ALTAMIRANO RESIDENT Mar 31, 2024 17:12 JOVITA FISH MD Apr 03, 2024 11:29
[2024-03-31] MEDS: ENOXAPARIN SOD 120 MG/0.8 ML SYRINGE SC SCH (20:55)
[2024-04-01 07:48] LABS: Basophils # (auto) 0.1 10 ^3/uL (0-0.2); Basophils % (auto) 0.8 % (0.0-2.0); Eosinophils # (auto) 0.2 10 ^3/uL (0-0.8); Eosinophils % (auto) 2.7 % (0.0-7.0); Hematocrit 45.6 % (41.0-53.0); Hemoglobin 15.6 g/dL (13.5-17.5); Lymphocytes # (auto) 0.9 10 ^3/uL (0.4-5.4); Lymphocytes % (auto) 12.3 % (10.0-50.0); Mean Corpuscular Hemoglobin 33.7 pg (28.0-32.0); Mean Corpuscular Hgb Conc. 34.2 g/dL (32.0-36.0); Mean Corpuscular Volume 98.7 fL (80.0-100.0); Monocytes # (auto) 0.8 10 ^3/uL (0-1.3); Monocytes % (auto) 11.1 % (0.0-12.0); Neutrophils # (auto) 5.4 10 ^3/uL (1.6-8.6); Neutrophils % (auto) 73.1 % (37.0-80.0); Nucleated Red Blood Cells % 0.1 %; Platelet Count (auto) 131 10^3/uL (140-450); Red Blood Cells 4.62 10^6/uL (4.5-5.90); Red Cell Distribution Width 13.3 % (11.8-14.3); White Blood Cell 7.3 10^3/uL (4.4-10.8)
[2024-04-01 07:55] LABS: Anion Gap 10 (5-15); Carbon Dioxide 28 mmol/L (20-31); Chloride 101 mmol/L (98-107); Potassium 4.2 mmol/L (3.5-5.1); Sodium 139 mmol/L (136-145)
[2024-04-01 07:57] LABS: Calcium 9.5 mg/dL (8.7-10.4); INR 1.17 (0.9-1.15); Partial Thromboplastin Time 37.5 SEC (24.5-34.5); Prothrombin Time 12.2 sec (9.3-11.8)
[2024-04-01 08:00] VITALS: PULSE 69
[2024-04-01 08:01] LABS: Glucose 94 mg/dL (74-106)
[2024-04-01 08:02] LABS: BUN/Creatinine Ratio 22.6 (10.0-20.0); Blood Urea Nitrogen 19 mg/dL (9-23)
[2024-04-01 09:00] VITALS: BP 115/77; PULSE 86; RESP 18; TEMP 98; O2SAT 93
[2024-04-01] MEDS: LOSARTAN POTASSIUM 50 MG TAB PO SCH (11:30)
[2024-04-01] MEDS: cefTRIAXone 1GM/50ML D5W 50 ML IV SCH (11:41)
[2024-04-01 13:00] VITALS: BP 117/73; PULSE 81; RESP 18; TEMP 97.2; O2SAT 97
--- NOTE | 2024-04-01 13:45 | DVHINCON2 ---
Date Seen: Apr 01, 2024 Referring Physician MD Gayatri resident Reason for Consultation New onset CHF History of Present Illness This is a 78-year-old male patient who presents to the emergency room with chief complaint of left lower extremity ulcer and swelling. The patient was not the best historian given his history of dementia. The patient's at bedside able to provide more accurate history. According to the patient's , she brings the patient in for further evaluation of a left lower extremity ulcer that she noticed one day prior to emergency room arrival. Cardiology has now been consulted for "new onset congestive heart failure". Initial twelve lead e lectrocardiogram reveals atrial fibrillation with nonspecific ST segment changes to lateral leads. Initial and serial troponin levels have been negative. The patient denies any chest pain, shortness of breath, palpitations, or other cardiac symptoms. Significant past medical history includes congestive heart failure, hypertension, atrial fibrillation (on Eliquis), dementia, and obesity. The patient's reports that the patient has been known to have congestive heart failure and follows up with wood barker in the outpatient setting. Past Medical History Past medical history reviewed. No other significant than mentioned above. Past Surgical History Denies Family History: Patient reports no known family medical history. Family History Family history reviewed. Social History Denies the use of tobacco, alcohol or illicit drugs. Allergies: Coded Allergies: NO KNOWN ALLERGIES (Unverified , 01/25/19) Home Meds Reported Medications Apixaban Base (ELIQUIS) 5 Mg Tab, 5 MG PO BID, TAB 03/30/24 Memantine Hydrochloride (Memantine HCl) 5 Mg Tab, 1 TAB PO BID 03/30/24 Donepezil Hydrochloride (DONEPEZIL HCL) 10 Mg Tab, 1 TAB PO 03/30/24 Lisinopril (Lisinopril) 20 Mg Tab, 1 DAILY 03/30/24 Finasteride (Finasteride) 5 Mg Tab, 1 TAB PO DAILY 03/30/24 Finasteride (Finasteride) 5 Mg Tab, 5 MG PO DAILY for 30 Days, MG 01/25/19 Apixaban Base (ELIQUIS) 2.5 Mg Tab, 2.5 MG PO BID, TAB 01/25/19 Home Meds Home medications reviewed. Current Medications Current Medications Medications (Trade) Dose Ordered Sig/Siri Route PRN Reason Start Time Stop Time Status Last Admin Ceftriaxone Sodium 50 ml @ 100 mls/hr DAILY@09 IV 04/01/24 09:00 04/01/24 11:41 Losartan Potassium (Cozaar Tablet) 50 mg DAILY PO 04/01/24 10:00 04/01/24 11:30 Enoxaparin Sodium (Lovenox) 120 mg Q12H SC 03/31/24 16:45 03/31/24 16:36 DC Enoxaparin Sodium (Lovenox) 120 mg Q12H SC 03/31/24 20:00 04/01/24 11:30 Review of Systems Constitutional: No symptom reported Ears, Nose, & Throat: No symptom reported Eyes: No symptom reported Neurological: No symptoms reported Pulmonary/Respiratory: No symptoms reported Cardiovascular: Bilateral lower extremity edema Gastrointestinal: No symptom reported Genitourinary: No symptom reported Musculoskeletal: No symptom reported Skin: Left lower extremity ulcer Psychiatric: No symptom reported Endocrine: No symptom reported Hematologic/Lymphatic: No symptom reported Vital Signs Vital Signs Date Time Temp Pulse Resp B/P (MAP) Pulse Ox O2 Delivery O2 Flow Rate FiO2 04/01/24 11:30 113/75 04/01/24 08:15 Room Air* 0 21 03/31/24 20:00 17 96 03/31/24 20:00 81 03/31/24 17:00 97.7 97.7 Physical Exam General Appearance: Cooperative. Morbidly obese Pulmonary/Respiratory: Clear, bilateral breaths sounds. Cardiovascular/Chest: Irregular rate and rhythm. Peripheral Pulses: 2+ Radial (R). 2+ Radial (L). Abdominal Exam: Normal bowel sounds. Ankle Exam: 3+ pitting edema Lower extremities: Bilateral 3+ pitting edema Neuro/Mental Status: A/OX2-3, confused Thoughts/Psych: Normal thought pattern. Appearance: No acute distress. Skin Exam: Left lower extremity ulcer (dressing in place) Labs/Diagnostic Data Labs Test 04/01/24 06:53 03/31/24 10:45 03/29/24 17:08 03/29/24 15:21 Range/Units White Blood Count 7.3 4.4-10.8 10^3/uL Red Blood Count 4.62 4.5-5.90 10^6/uL Hemoglobin 15.6 13.5-17.5 g/dL Hematocrit 45.6 41.0-53.0 % Mean Corpuscular Volume 98.7 80.0-100.0 fL Mean Corpuscular Hemoglobin 33.7 H 28.0-32.0 pg Mean Corpuscular Hemoglobin Concent 34.2 32.0-36.0 g/dL Red Cell Distribution Width 13.3 11.8-14.3 % Platelet Count 131 L 140-450 10^3/uL Mean Platelet Volume 9.4 6.9-10.8 fL Neutrophils (%) (Auto) 73.1 37.0-80.0 % Lymphocytes (%) (Auto) 12.3 10.0-50.0 % Monocytes (%) (Auto) 11.1 0.0-12.0 % Eosinophils (%) (Auto) 2.7 0.0-7.0 % Basophils (%) (Auto) 0.8 0.0-2.0 % Neutrophils # (Auto) 5.4 1.6-8.6 10 ^3/uL Lymphocytes # (Auto) 0.9 0.4-5.4 10 ^3/uL Monocytes # (Auto) 0.8 0-1.3 10 ^3/uL Eosinophils # (Auto) 0.2 0-0.8 10 ^3/uL Basophils # (Auto) 0.1 0-0.2 10 ^3/uL Nucleated Red Blood Cells 0.1 % Prothrombin Time 12.2 H 9.3-11.8 sec Prothrombin Time INR 1.17 H 0.9-1.15 Activated Partial Thromboplast Time 37.5 H 24.5-34.5 SEC Sodium Level 139 136-145 mmol/L Potassium Level 4.2 3.5-5.1 mmol/L Chloride Level 101 98-107 mmol/L Carbon Dioxide Level 28 20-31 mmol/L Anion Gap 10 5-15 Blood Urea Nitrogen 19 9-23 mg/dL Creatinine 0.84 0.700-1.30 mg/dL Glomerular Filtration Rate Calc 90 >90 mL/min BUN/Creatinine Ratio 22.6 H 10.0-20.0 Serum Glucose 94 74-106 mg/dL Calcium Level 9.5 8.7-10.4 mg/dL Thyroid Stimulating Hormone (TSH) 1.83 0.55-4.78 uIU/mL Troponin I High Sensitivity 9 </=54 ng/L C-Reactive Protein High Sensitivity 0.04 <1.0 mg/dL Triglycerides Level 70 < 150 mg/dL Cholesterol Level 171 < 200 mg/dL LDL Cholesterol 118 H < 100 mg/dL HDL Cholesterol 58 40-59 mg/dL Urine Color Yellow Yellow Urine Clarity Clear Clear Urine pH 5.5 5.0-9.0 Urine Specific [place] 1.025 1.001-1.035 Urine Protein Trace H Negative Urine Ketones 1+ H Negative Urine Blood Negative Negative /uL Urine Nitrite Negative Negative Urine Bilirubin Negative Negative Urine Urobilinogen 2 H Negative mg/dL Urine Leukocyte Esterase Trace Negative /uL Urine RBC 7 0 - 3 /hpf Urine Microscopic WBC 6 H 0-3 /HPF Urine Squamous Epithelial Cells Few <5 /hpf Urine Calcium Oxalate Crystals Mod None Seen Urine Bacteria None seen None Seen /hpf Urine Mucus Few None Seen Urine Glucose Normal Normal mg/dL Test 03/29/24 12:59 Range/Units D-Dimer, Quantitative 0.79 H 0.0-0.49 mg/L FEU Hemoglobin A1c 5.1 <5.7 % A1C Magnesium Level 2.0 1.6-2.6 mg/dL Total Bilirubin 0.8 0.2-1.0 mg/dL Aspartate Amino Transferase (AST) 23 13-40 U/L Alanine Aminotransferase (ALT) 20 7-40 U/L Alkaline Phosphatase 91 46-116 U/L B-Type Natriuretic Peptide 129.30 0-100 pg/mL Total Protein 6.1 5.7-8.2 g/dL Albumin 4.1 3.2-4.8 g/dL Assessment 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 Transthoracic echocardiogram reveals EF 40-45%. We will recommend to continue current guideline directed medical therapy for congestive heart failure as tolerated (Diuretics: Class 1 recommendation, SGLT2i: Class 2a recommendation, TRUMAN/ARB/ARNI and MRA considered class 2b recommendation). Continue diuretics as tolerated. Strict intake and output, daily weights, maintain fluid restriction. [id number] VASc score: 4 points, HAS-BLED score:1 point. Patient is currently on therapeutic Lovenox, transition back to [facility] prior to discharge. Patient's states that his primary wood barker has been seeing him for congestive heart failure for over five years. She reports that the patient has had a stress test in the past, but can not remember if he has had an angiogram. At this time, the patient is asymptomatic from any cardiac symptoms. No indication for inpatient ischemic workup at this time. Cardiology will sign off. Patient to follow up with his primary wood barker in the outpatient setting within 1-2 weeks post discharge. Thank you for allowing us to care for this patient. Please call with any questions or concerns. Critical care time spent: 38 min utes This medical document was created using an electronic medical record system with voice recognition software and computerized dictation system. Although this document has been carefully reviewed, there might still be some phonetic and typ ographical errors. Occasional wrong-word or ``sound-alike substitutions may have occurred due to the inherent limitations of voice recognition software. These areas are purely typographical due to imperfections of the software programs and do not reflect any compromise in the patient's medical care. Please read the chart carefully and recognize, using context, where these subs titutions have occurred. Plan discussed with: Patient NYHA Physical activity limitations: Class3(Marked) ordinary (activity causes symtoms) Date of Service: Apr 01, 2024 Billing Provider: PAULINA VEE Cardiology Common Codes: 53975-KSIOVLL INP/OBS CARE (High) Cardiology Consultation Codes: 45340-[id number] CONSULT <45MIN PAULINA VEE Apr 01, 2024 13:45
--- NOTE | 2024-04-01 14:40 | DVHPNRES ---
Progress Note Date Seen: Apr 01, 2024 Resident Creating Document: ANGELITA PLAZA RESIDENT Medical Necessity Reason Pt with a Central, PICC or Fol: No Subjective Review of Systems Patient is a 78-year-old male with past medical history of dementia, hypertension, AFib, obstructive uropathy, who was brought in by due to a left lower extremity ulcer. According to patient's at bedside, she noticed the ulcer yesterday for the 1st time. At the time of my assessment patient is AO x2 and reports he has had the ulcer for a couple of days. Denies any pain or any similar symptoms in the past. Review of systems is negative, however, patient might be a poor historian. On physical examination patient is noted to have a left anterior edwards ulcer stage II? 2 x 2 cm with a clean base along with 2+ lower extremity edema bilaterally. Past Medical History dementia, hypertension, AFib, obstructive uropathy Past Surgical History Denies Smoke: No ALCOHOL: none Drugs: None Lives: with Family Objective vital signs Vital Sign Date Time Temp Pulse Resp B/P (MAP) Pulse Ox O2 Delivery O2 Flow Rate FiO2 04/01/24 11:30 113/75 04/01/24 08:15 Room Air* 0 21 03/31/24 20:00 17 96 03/31/24 20:00 81 03/31/24 17:00 97.7 97.7 Total Intake and Output 03/31/24 03/31/24 04/01/24 15:00 23:00 07:00 Intake Total 410 ml 680 ml Output Total 500 ml 550 ml Balance -90 ml 130 ml medications Current Medications Medications Dose Ordered Sig/Siri Route Start Time Stop Time Status Last Admin Dose Admin Acetaminophen 650 mg Q6HP PRN PO 03/29/24 22:30 Furosemide 40 mg DAILY IV 03/30/24 10:00 04/01/24 11:26 40 MG Finasteride 5 mg DAILY PO 03/30/24 10:00 04/01/24 11:28 5 MG Memantine 5 mg DAILY PO 03/30/24 10:00 04/01/24 11:29 5 MG Empaglifozin 10 mg DAILY PO 03/31/24 10:45 04/01/24 11:29 10 MG Ceftriaxone Sodium 50 ml @ 100 mls/hr DAILY@09 IV 04/01/24 09:00 04/01/24 11:41 100 MLS/HR Losartan Potassium 50 mg DAILY PO 04/01/24 10:00 04/01/24 11:30 50 MG Enoxaparin Sodium 120 mg Q12H SC 03/31/24 20:00 04/01/24 11:30 120 MG Examination Constitutional: Patient was alert and oriented X 1 and does not appear to be in acute respiratory distress. Gen - no pallor, no icterus, no cyanosis, no clubbing, no LAD, bilateral 2+ pitting edema Skin - Patients skin is warm and dry. HEENT - normocephalic, atraumatic, moist mucous membranes. Neck - full ROM, no LAD, no JVD Pulmonary - B/L vesicular breath sounds. no crackles , no wheezing cardiovascular - irregular rhythm, S1,S2 heard. no murmurs heard. GI - soft abdomen without tenderness to palpation . no hepatospleenomegaly. Bowel Sounds normoactive Neurological - Bilateral upper extremity strength 4/5, bilateral lower extremity strength 4/5, no facial droop, normal speech, no tremor, no sensory deficiets. 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 There is global hypokinesis of the left ventricle. The left atrium is moderately dilated. The right atrium is moderately dilated. - on furosemide 40mg IV qd - stopped lisinopril and started losartan 50 mg qd - added jardiance - cardiology consult for possible ischemic workup d/t new onset heart failure History of obstructive uropathy ?BPH - monitor I/O - on finasteride Dementia - continued on memantine Goals of care discussed with the patient's for over 21 mins. Full code Plan discussed with Plan discussed with: Patient, Other (rn) Date of Service: Apr 01, 2024 Billing Provider: JOVITA FISH MD Common Visit Codes: [id number] INP/OBS CARE(HIGH) FONTANEZANGELITA YOUNG Apr 01, 2024 14:39 JOVITA FISH MD Apr 03, 2024 11:30
[2024-04-01 17:00] VITALS: BP 110/67; PULSE 88; RESP 18; TEMP 97.5; O2SAT 96
[2024-04-01 20:00] VITALS: PULSE 81; RESP 17; O2SAT 96
[2024-04-01 21:00] VITALS: BP 107/59; PULSE 87; RESP 20; TEMP 98.1; O2SAT 96
[2024-04-02] VITALS (7 sets, daily range): BP systolic 95–123; BP diastolic 50–67; PULSE 62–86; RESP 18–20; TEMP 97.7–98.4; O2SAT 93–96
[2024-04-02] MEDS ORDERED: EMPA1TAB PO (13:33)
[2024-04-02] MEDS ORDERED: FURO40TA4 PO (13:33)
[2024-04-02] MEDS ORDERED: LOSA-534 PO (13:33)
[2024-04-02] MEDS ORDERED: MUPI2CRE17 EX (13:35)
--- NOTE | 2024-04-02 14:55 | DVHDSRES ---
Discharge Summary Date of Admission Resident Creating Document: CURTIS ALTAMIRANO RESIDENT Mar 29, 2024 at 22:21 Date of Discharge: Apr 02, 2024 Admitting Diagnosis Possible CHF exacerbation History of atrial fibrillation with RVR, currently rate controlled Hypertension Left anterior leg ulcer with a clean base Questionable cellulitis? Obstructive uropathy Dementia Wounds: Left lower extremity wound above the ankle on the anterior surface of the edwards measuring 2X2 cm, with granulating tissue, no pus Labs/Diagnostic Data: Laboratory Results Test 04/01/24 06:53 03/31/24 10:45 03/29/24 17:08 03/29/24 15:21 White Blood Count 7.3 10^3/uL (4.4-10.8) Red Blood Count 4.62 10^6/uL (4.5-5.90) Hemoglobin 15.6 g/dL (13.5-17.5) Hematocrit 45.6 % (41.0-53.0) Mean Corpuscular Volume 98.7 fL (80.0-100.0) Mean Corpuscular Hemoglobin 33.7 pg (28.0-32.0) Mean Corpuscular Hemoglobin Concent 34.2 g/dL (32.0-36.0) Red Cell Distribution Width 13.3 % (11.8-14.3) Platelet Count 131 10^3/uL (140-450) Mean Platelet Volume 9.4 fL (6.9-10.8) Neutrophils (%) (Auto) 73.1 % (37.0-80.0) Lymphocytes (%) (Auto) 12.3 % (10.0-50.0) Monocytes (%) (Auto) 11.1 % (0.0-12.0) Eosinophils (%) (Auto) 2.7 % (0.0-7.0) Basophils (%) (Auto) 0.8 % (0.0-2.0) Neutrophils # (Auto) 5.4 10 ^3/uL (1.6-8.6) Lymphocytes # (Auto) 0.9 10 ^3/uL (0.4-5.4) Monocytes # (Auto) 0.8 10 ^3/uL (0-1.3) Eosinophils # (Auto) 0.2 10 ^3/uL (0-0.8) Basophils # (Auto) 0.1 10 ^3/uL (0-0.2) Nucleated Red Blood Cells 0.1 % Prothrombin Time 12.2 sec (9.3-11.8) Prothrombin Time INR 1.17 (0.9-1.15) Activated Partial Thromboplast Time 37.5 SEC (24.5-34.5) Sodium Level 139 mmol/L (136-145) Potassium Level 4.2 mmol/L (3.5-5.1) Chloride Level 101 mmol/L (98-107) Carbon Dioxide Level 28 mmol/L (20-31) Anion Gap 10 (5-15) Blood Urea Nitrogen 19 mg/dL (9-23) Creatinine 0.84 mg/dL (0.700-1.30) Glomerular Filtration Rate Calc 90 mL/min (>90) BUN/Creatinine Ratio 22.6 (10.0-20.0) Serum Glucose 94 mg/dL (74-106) Calcium Level 9.5 mg/dL (8.7-10.4) Thyroid Stimulating Hormone (TSH) 1.83 uIU/mL (0.55-4.78) Troponin I High Sensitivity 9 ng/L (</=54) C-Reactive Protein High Sensitivity 0.04 mg/dL (<1.0) Triglycerides Level 70 mg/dL (< 150) Cholesterol Level 171 mg/dL (< 200) LDL Cholesterol 118 mg/dL (< 100) HDL Cholesterol 58 mg/dL (40-59) Urine Color Yellow (Yellow) Urine Clarity Clear (Clear) Urine pH 5.5 (5.0-9.0) Urine Specific [place] 1.025 (1.001-1.035) Urine Protein Trace (Negative) Urine Ketones 1+ (Negative) Urine Blood Negative /uL (Negative) Urine Nitrite Negative (Negative) Urine Bilirubin Negative (Negative) Urine Urobilinogen 2 mg/dL (Negative) Urine Leukocyte Esterase Trace /uL (Negative) Urine RBC 7 /hpf (0 - 3) Urine Microscopic WBC 6 /HPF (0-3) Urine Squamous Epithelial Cells Few /hpf (<5) Urine Calcium Oxalate Crystals Mod (None Seen) Urine Bacteria None seen /hpf (None Seen) Urine Mucus Few (None Seen) Urine Glucose Normal mg/dL (Normal) Test 03/29/24 12:59 D-Dimer, Quantitative 0.79 mg/L FEU (0.0-0.49) Hemoglobin A1c 5.1 % A1C (<5.7) Magnesium Level 2.0 mg/dL (1.6-2.6) Total Bilirubin 0.8 mg/dL (0.2-1.0) Aspartate Amino Transferase (AST) 23 U/L (13-40) Alanine Aminotransferase (ALT) 20 U/L (7-40) Alkaline Phosphatase 91 U/L (46-116) B-Type Natriuretic Peptide 129.30 pg/mL (0-100) Total Protein 6.1 g/dL (5.7-8.2) Albumin 4.1 g/dL (3.2-4.8) Other Laboratory Tests 04/01/24 06:53 Brief Hx & Hospital Course: HPI Patient is a 78-year-old male with a past medical history of atrial fibrillation, hypertension, dementia, obstructive uropathy was brought in by due to left lower extremity ulcer. Patient's reported that she noticed ulcer on the left lower extremity on the anterior surface of the lower leg above ankle about 2 days ago. She also reports that patient was had bilateral lower extremity swelling which has been increasing. Patient himself is a poor historian and does not report of any acute complaints. Past medical history: Dementia, atrial fibrillation, hypotension, obstructive uropathy Past surgical history: None Social history: Patient lives with his who is his ham sawyer, uses walker to walk around. Denies smoking, alcohol, drug use Home medications: Lisinopril 20 mg, finasteride 5 mg, memantine 5 mg, donepezil 10 mg, Eliquis 5 mg b.i.d. Hospital course Patient was admitted to the hospital with bilateral lower extremity swelling with the associated left lower extremity extremity ulcer on the anterior surface. Patient was started on furosemide IV and Echocardiogram was done which showed LVEF 40-45% following which the patient was started on Jardiance and losartan which are recommended in heart failure with mildly reduced ejection fraction. Wound Care were consulted and dressing was done every other day. Patient was on telemetry and showed atrial fibrillation without RVR. Physical therapy evaluated the patient and recommended discharging the patient home with health services for physical therapy rehabilitation. Patient was given empiric antibiotics ceftriaxone because of the wound which had red granulation tissue and no drainage pus. Cardiology were consulted and recommended outpatient follow up with the primary medical laboratory technician and no indication for ischemic workup in the hospital as the patient was asymptomatic. Patient was discharged in stable condition to home with health services for physical therapy rehab. Discharge plan Follow up with the primary care provider in 1 week and the primary medical laboratory technician for further workup Medication: Losartan 50 mg q.d., furosemide 40 mg q.d. for 10 days, Jardiance 10 mg q.d., mupirocin 2% ointment bid for wound Consults/Reason for consult Cardiology Consult for heart failure Operations or Procedures Echocardiogram Conclusion The left ventricle is normal size. There is normal left ventricular wall thickness. Left ventricle systolic function is mildly decreased, The Ejection Fraction is 40-45%. There is global hypokinesis of the left ventricle. The left atrium is moderately dilated. The right atrium is moderately dilated. No significant valvular abnormalities. No evidence of pericardial effusion. 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 Left leg ulcer ?Cellulitis History of obstructive uropathy ?BPH Dementia Discharge Disposition: Home with Health Services Discharge Instruct/Medications Diet: Cardiac 2g Na,low cholest Activity: No Restrictions, As Tolerated Follow Up/Referral: Follow up with the PCP in one week Follow up with the primary medical laboratory technician in the outpatient clinic in one week Medications: as per the EMR Discharge Statement: "Patient was advised to return to the ER or call 911 if any headaches, dizziness, shortness of breath, chest pain, abdominal pain, bleeding, fevers, or worsening of medical condition. Patient was counseled about treatment plan, medications, possible side effects, patientverbalized understanding. All questions were answered to the best of my ability. 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
== END 2024-04-02 20:14 | disposition home health service (06) | DRG 291 ==
LOC: ER 12:07 → TELE 22:21 → TELE-WESTW 03-30 04:58
PROVIDERS: ADMIT Student in an Organized Health Care Education/Training Program; ATTEND General Practice
DX: I11.0 Hypertensive heart disease with heart failure (principal); I50.23 Acute on chronic systolic (congestive) heart failure; L97.929 Non-pressure chronic ulcer of unspecified part of left lower leg with unspecified severity; Z68.41 Body mass index [BMI] 40.0-44.9, adult; M41.9 Scoliosis, unspecified; N13.9 Obstructive and reflux uropathy, unspecified; E66.01 Morbid (severe) obesity due to excess calories; F03.90 Unspecified dementia, unspecified severity, without behavioral disturbance, psychotic disturbance, mood disturbance, and anxiety; I48.91 Unspecified atrial fibrillation; Z79.899 Other long term (current) drug therapy; Z79.2 Long term (current) use of antibiotics; Z79.01 Long term (current) use of anticoagulants
CPT/HCPCS: 36415; 71045; 80048; 80053; 80061; 81001; 83036; 83735; 83880; 84443; 84484; 85025; 85379; 85610; 85730; 86141; 93005; 93306; 93925; 93970; 93971; 97110; 97116; 97163; 97530; G0378